=== PATIENT | female | born 1965 | race Caucasian/White ===

== ENCOUNTER → 2016-05-31 | Outpatient (CLI) | payer BC ==
[~2016-05-31] MED LIST: CIPRO500 MG PO; FLAGYL500 MG PO; NORCO 5/3251 TABLET PO; VICODIN 5-3001 EACH PO; ZOFRAN ODT4 MG PO
== END | disposition home or self-care (01) ==
LOC: CDC
DX: Z01.810 Encounter for preprocedural cardiovascular examination (principal); N20.0 Calculus of kidney
CPT/HCPCS: 93000

== ENCOUNTER → 2016-06-05 | Outpatient (CLI) | payer BC ==
[~2016-06-05] MED LIST changes: +DOCUSATE SODIU100 MG PO; +ENDOCET 5-3251 EACH PO; +PYRIDIUM200 MG PO; +TAMSULOSIN HCL0.4 MG PO; +TYLENOL EXTRA500 MG PO
[2016-06-05 09:49] LABS: HEMATOCRIT 41.1 % (36.0-46.0); MCH 28.8 PG (29.0-34.0); MCHC 33.3 G/DL (30.0-36.0); MCV 86.5 FL (83-99); MEAN PLAT.VOLUME 11.4 uM^3 (9.5-12.4); PLATELET COUNT 278 K/uL (156-360); RBC DIS.WIDTH-CV 14.7 % (11.8-14.6); RBC DIS.WIDTH-SD 46.5 % (39-53); RED BLOOD COUNT 4.75 M/uL (3.80-5.20); WHITE BLOOD COUNT 6.3 K/uL (4.1-10.2)
[2016-06-05 10:08] LABS: INTER. NORMALIZED RATIO 1.1; PROTHROMBIN TIME 10.7 (9.2-11.2); PTT 28.2 (25-32)
== END | disposition home or self-care (01) ==
LOC: OPR 08:41 → EDSTATUS 09:00
PROVIDERS: Urology
DX: N20.0 Calculus of kidney (principal); Z87.891 Personal history of nicotine dependence
CPT/HCPCS: 50432; 77012; 85027; 85610; 85730; C1769; J3010

== ENCOUNTER 2016-06-07 05:43 | Day surgery (SDC) | payer BC ==
[~2016-06-07] VITALS: Ht 157.5 cm; Wt 122.4 kg
[~2016-06-07 05:43] MED LIST changes: -DOCUSATE SODIU100 MG PO; -ENDOCET 5-3251 EACH PO; -PYRIDIUM200 MG PO; -TAMSULOSIN HCL0.4 MG PO; -TYLENOL EXTRA500 MG PO
[2016-06-07] MEDS ORDERED: TYLENOL EXTRA500 MG PO (06:21)
[2016-06-07 06:30] VITALS: BP 127/78
[2016-06-07] MEDS ORDERED: ENDOCET 5-3251 EACH PO (10:49)
[2016-06-07] MEDS ORDERED: CIPRO500 MG PO (10:49)
[2016-06-07] MEDS ORDERED: DOCUSATE SODIU100 MG PO (10:49)
[2016-06-07 11:03] LABS: HEMATOCRIT 40.9 % (36.0-46.0); MCH 28.1 PG (29.0-34.0); MCV 87.6 FL (83-99); MEAN PLAT.VOLUME 10.6 uM^3 (9.5-12.4); PLATELET COUNT 284 K/uL (156-360); RBC DIS.WIDTH-CV 14.7 % (11.8-14.6); RBC DIS.WIDTH-SD 46.8 % (39-53); RED BLOOD COUNT 4.67 M/uL (3.80-5.20); WHITE BLOOD COUNT 8.5 K/uL (4.1-10.2)
[2016-06-07 11:11] LABS: CHLORIDE 107 mEq/L (99-109); POTASSIUM 4.9 mEq/L (3.7-5.4); SODIUM 137 mEq/L (136-147)
[2016-06-07 11:13] LABS: GLUCOSE 109 mg/dL (70-99)
[2016-06-07 11:14] LABS: ANION GAP 7 MEQ/L (2-14)
[2016-06-07] MEDS ORDERED: PYRIDIUM200 MG PO (11:15)
[2016-06-07] MEDS ORDERED: TAMSULOSIN HCL0.4 MG PO (11:15)
[2016-06-07 11:16] LABS: GFR ESTIMATE (CALCULATED) 56 mL/min/
[2016-06-07 11:17] LABS: UREA NITROGEN (BUN) 15 mg/dL (9-23)
[2016-06-07 14:55] VITALS: BP 102/57
[2016-06-07 19:40] VITALS: BP 110/63
[2016-06-07 23:37] VITALS: BP 101/58
[2016-06-08 03:15] VITALS: BP 98/59
[2016-06-08 07:02] LABS: HEMATOCRIT 35.8 % (36.0-46.0); MCH 27.5 PG (29.0-34.0); MCV 88.8 FL (83-99); MEAN PLAT.VOLUME 10.8 uM^3 (9.5-12.4); PLATELET COUNT 233 K/uL (156-360); RBC DIS.WIDTH-CV 15.1 % (11.8-14.6); RED BLOOD COUNT 4.03 M/uL (3.80-5.20); WHITE BLOOD COUNT 10.1 K/uL (4.1-10.2)
[2016-06-08 07:19] LABS: ANION GAP 6 MEQ/L (2-14); CHLORIDE 105 MEQ/L (99-109); GFR ESTIMATE (CALCULATED) > 59 mL/min/; GLUCOSE 99 mg/dL (70-99); POTASSIUM 4.6 MEQ/L (3.7-5.4); SAMPLE HEMOLYSIS CHECK 0; SAMPLE ICTERIC CHECK 0; SAMPLE LIPEMIA CHECK 0; SODIUM 140 MEQ/L (136-147); UREA NITROGEN (BUN) 14 mg/dL (9-23)
[2016-06-08 08:22] VITALS: BP 115/64
[2016-06-08 11:16] VITALS: BP 118/68
== END 2016-06-08 13:02 | disposition home or self-care (01) ==
LOC: SDC 05:43 → 2SOUTH 10:30 → 5EAST 10:30 → SDC 12:56 → 5EAST 14:28
PROVIDERS: Urology
DX: N20.0 Calculus of kidney (principal); E66.01 Morbid (severe) obesity due to excess calories; Z68.43 Body mass index [BMI] 50.0-59.9, adult; Z88.0 Allergy status to penicillin
CPT/HCPCS: 71010; 74000; 80048; 82365 90; 85027; C1726; C1769; C1876; G0378; J0330; J0744; J1100; J1170; J1580; J1956; J2250; J2405; J3010; J7050; J7120; S0020